=== PATIENT | male | born 1975 | race Caucasian/White ===

== ENCOUNTER 2023-08-28 10:36 | Emergency (ER) | payer OTHER, SELFPAY ==
[2023-08-28 10:50] VITALS: BP 139/98
--- NOTE | 2023-08-28 11:36 | ED.GENMED ---
History of Present Illness
<Corin Martinez PA-C - Last Filed: 08/28/23 17:26>
General
Chief Complaint: Abdominal Pain
Source: patient
Exam Limitations: none
Time Seen by Provider: 08/28/23 11:28
Nursing documentation reviewed up to this point in time: agreed with
History of Present Illness
History of Present Illness:
This is a 48-year-old male with a past medical history of hyperlipidemia, GERD presenting emergency department today with left lower quadrant pain and epigastric pain. Patient states that this started earlier this morning. Patient states that the
left lower quadrant pain came on suddenly out of nowhere. Patient states that he felt like he needed to have a bowel movement, however he went to use the bathroom and nothing was there and he did not have to go. Patient states that the pain
persisted 10 out of 10 in severity and so he subsequently called EMS. Patient became diaphoretic and pale. Patient states that when EMS arrived, the pain started to subside now he rates it at 3 out of 10. Patient states that while in the emergency
department, he also started to develop epigastric pain which she is feels a lot different than his GERD symptoms. Patient denies chest pain or shortness of breath. Patient is fevers or chills. Patient denies constipation or diarrhea. Patient denies
history of abdominal surgeries in the past.
Past History
<Corin Martinez PA-C - Last Filed: 08/28/23 17:26>
Past History
ED Past Medical History: None
Social History
Tobacco: Non-smoker
Review of Systems
<Corin Martinez PA-C - Last Filed: 08/28/23 17:26>
Review of Systems
All Other Systems: ROS reviewed and negative except as documented in HPI and ROS
Phy Exam
<Corin Martinez PA-C - Last Filed: 08/28/23 17:26>
Physical Exam
Physical Exam:
General: Patient is well appearing and in no acute distress; non-toxic
Skin: Warm and dry, no rashes or lesions
Head: Normocephalic, atraumatic
Eyes: Sclera non-icteric. EOMs intact. PERRLA.
Cardiac: Regular rate and rhythm, no murmurs
Peripheral Vascular: No lower extremity swelling or edema
Pulm: Normal respiratory effort, no wheezes, rales, rhonchi
Abdomen: Mild left lower quadrant abdominal tenderness palpation with some mild guarding, no rebound tenderness, no pulsatile abdominal mass, no palpable masses, normoactive bowel sounds
Neuro: CN II-XII intact, no focal neurologic deficits.
Psychiatric: Appropriate mood and affect.
Course
<Corin Martinez PA-C - Last Filed: 08/28/23 17:26>
Orders/Labs/Results
Orders:
Orders
08/28/23
Electrocardiogram (*1) Stat
Reason for Study: Chest Pain
Comment: DONE NO ORDER ENTERED
08/28/23 11:53
Complete Blood Count/With Diff Urgent
Comprehensive Metabolic Panel Urgent
Lipase Urgent
Troponin I Urgent
08/28/23 12:18
CT Abd/pelvis W Iv Cont Urgent
Reason For Exam: llq pain
08/28/23 12:20
0.9% Sodium Chloride 1000 ml [Nss] 1,000 ml IV BOLUS
Abnormal Lab Results
08/28/23
11:53
WBC 13.1 H 10^3/uL
(4.8-10.8)
Abs Immat Gran (auto) 0.1 H 10^3/uL
(0-0.05)
Absolute Neuts (auto) 11.5 H 10^3/uL
(1.4-6.5)
Absolute Lymphs (auto) 0.8 L 10^3/uL
(1.2-3.4)
Absolute Monos (auto) 0.7 H 10^3/uL
(0.1-0.6)
Neutrophils % 87.5 H %
(42.2-75.2)
Lymphocytes % 6.3 L %
(20.5-51.1)
BUN 25 H mg/dl
(9-20)
Creatinine 1.5 H mg/dL
(0.7-1.3)
Glucose 113 H mg/dl
(70-99)
ALT 72 H U/L
(0-50)
Total Protein 8.3 H g/dl
(6.3-8.2)
Albumin 5.5 H g/dl
(3.5-5.0)
08/28/23 11:53
08/28/23 11:53
Vital Signs
Initial and Last Documented VS:
Initial Vital Signs
Temp Pulse Resp BP Pulse Ox
98.3 F 77 20 139/98 97
08/28/23 10:50 08/28/23 10:50 08/28/23 10:50 08/28/23 10:50 08/28/23 10:50
Last Documented Vital Signs
Temp Pulse Resp BP Pulse Ox
98.3 F 83 20 146/90 97
08/28/23 10:50 08/28/23 15:54 08/28/23 10:50 08/28/23 15:54 08/28/23 10:50
<uLis M Darnell MD - Last Filed: 08/28/23 21:57>
Orders/Labs/Results
Orders:
Orders
08/28/23
Electrocardiogram (*1) Stat
Reason for Study: Chest Pain
Comment: DONE NO ORDER ENTERED
08/28/23 11:53
Complete Blood Count/With Diff Urgent
Comprehensive Metabolic Panel Urgent
Lipase Urgent
Troponin I Urgent
08/28/23 12:18
CT Abd/pelvis W Iv Cont Urgent
Reason For Exam: llq pain
08/28/23 12:20
0.9% Sodium Chloride 1000 ml [Nss] 1,000 ml IV BOLUS
Abnormal Lab Results
08/28/23
11:53
WBC 13.1 H 10^3/uL
(4.8-10.8)
Abs Immat Gran (auto) 0.1 H 10^3/uL
(0-0.05)
Absolute Neuts (auto) 11.5 H 10^3/uL
(1.4-6.5)
Absolute Lymphs (auto) 0.8 L 10^3/uL
(1.2-3.4)
Absolute Monos (auto) 0.7 H 10^3/uL
(0.1-0.6)
Neutrophils % 87.5 H %
(42.2-75.2)
Lymphocytes % 6.3 L %
(20.5-51.1)
BUN 25 H mg/dl
(9-20)
Creatinine 1.5 H mg/dL
(0.7-1.3)
Glucose 113 H mg/dl
(70-99)
ALT 72 H U/L
(0-50)
Total Protein 8.3 H g/dl
(6.3-8.2)
Albumin 5.5 H g/dl
(3.5-5.0)
08/28/23 11:53
08/28/23 11:53
Vital Signs
Initial and Last Documented VS:
Initial Vital Signs
Temp Pulse Resp BP Pulse Ox
98.3 F 77 20 139/98 97
08/28/23 10:50 08/28/23 10:50 08/28/23 10:50 08/28/23 10:50 08/28/23 10:50
Last Documented Vital Signs
Temp Pulse Resp BP Pulse Ox
98.3 F 83 20 146/90 97
08/28/23 10:50 08/28/23 15:54 08/28/23 10:50 08/28/23 15:54 08/28/23 10:50
<Corin Martinez PA-C - Last Filed: 08/28/23 17:26>
MDM/Problems Addressed
Differential Diagnosis Includes:
ddx include diverticulitis, perforated viscus, colitis, hernia, constipation
MDM/Problems Addressed:
LLQ pain:
This is a 48-year-old male with a past medical history of hyperlipidemia, GERD, tobacco use presenting emergency department today with left lower quadrant pain. Patient never had a colonoscopy before, has no history of abdominal surgeries. Patient
states that he has been constipated on and off recently. Patient states that his pain started severe 10 out of 10 and then came down to 3 out of 10 with only some mild discomfort. His CMP demonstrates an elevated BUN to creatinine ratio, liter
fluids were given. His CBC shows a very mild leukocytosis. His CT of the abdomen pelvis demonstrates some mild enteritis, can treat this with supportive care, patient states that he does feel better and will continue to monitor symptoms and watch
at home. Did encourage patient to start using MiraLAX once daily for a week or 2 to help regulate his bowels, discussed spasm and how this may help improve his pain as well. Discussed colonoscopy screening. Patient will follow-up with his
primary. Patient stable for discharge.
Chronic conditions affecting care:
hyperlipidemia, GERD, tobacco use
Acute Exacerbation and/or Progression of Chronic Illness:
hyperlipidemia, GERD, tobacco use
<Corin Martinez PA-C - Last Filed: 08/28/23 17:26>
*Pulse Oximetry
Patient hypoxic: no
*Critical Care Note
Total Time (30-74mins, 75-104mins- exclusive of procedures): Not Applicable
Data Reviewed
Review of Other/Old Records Reveals: Records (Reviewed previous ER physician documentation from 08/19/2014) and Discharge Summary (No discharge summaries in [facility] to review)
Source: patient and records
Prescriptions/Medications Considered But Not Given:
Considered antibiotics however patient does not have a significant leukocytosis, no fever, pain has significantly improved
<Corin Martinez PA-C - Last Filed: 08/28/23 17:26>
Patient Management
Escalation/DeEscalation of care consider admission/obs:
Admit not indicated, discussed case with my attending Dr. Darnell.
ED Attending Note
<Corin Martinez PA-C - Last Filed: 08/28/23 17:26>
-
Portions of this chart may have been created with voice recognition software.� Occasional wrong word or��sound alike� substitutions may have occurred due to the inherent limitations of voice recognition software.
<Luis M Darnell MD - Last Filed: 08/28/23 21:57>
ED Attending Note
Patient seen and examined by attending physician: Yes
ED Attending Note:
Patient presents to ED secondary to sudden onset of left-sided abdominal pain with nausea sensation, while he was at home this morning. Since then, pain has significant improved spontaneously. Denies fever or chills. Abdominal pain described as
sharp, nonradiating, without any alleviating or exacerbating factors. Denies previous history of similar symptoms. Denies recent illness. Denies recent change in medications or diet. Denies urinary difficulties.
Physical Exam
General: no apparent distress, not acutely ill. afebrile.
Head: nc/at. eomi
Neck: supple. no meningeal signs.
Heart: s1/s2 regular rate and rhythm, no murmur. equal radial pulses.
Lungs: no acute respiratory distress. clear bilaterally
Abdomen: normal bowel sounds. mild LLQ tenderness to palpation.
Neuro: alert and oriented. no focal neurological deficits
Skin: no rash
Psychiatric: well kept. interactive and cooperative
Extremities: no edema. no calf tenderness.
CT report reviewed and discussed with the patient. Pt with likely nonspecific abdominal discomfort. Advised bowel rest, hydration, along with pcp f/u as outpatient.
Discharge Plan
Departure
Patient Disposition: Home (Routine Discharge)
Date of Disposition: 08/28/23
Time of Disposition: 15:47
Patient with high blood pressure during this ER visit?: Yes
Condition: Good
Discharge Problem:
Abdominal pain
Instructions: Constipation, Adult (DC), Abdominal Pain, BLOOD PRESSURE
Prescriptions:
No Action
hydrocodone-acetaminophen 1 TABLET tablet
1 tab PO Q4HPRN PRN (Reason: Pain) Qty: 10 0RF
Referrals:
Bill Lundberg MD [Family Provider] -
Activity Restrictions/Additional Instructions:
Your CT scan demonstrated mild inflammation of the bowel. Please stay well hydrated and continue to monitor your symptoms.
I recommend starting MiraLAX once daily to help regulate your bowels. You can follow package instructions take once daily and mix with juice, water etc.
Please follow up with your primary care provider.
Interventions
Interventions:
*Risk Screen - Suicide Last Done: 08/28/23 10:50
*General Assessment Last Done: 08/28/23 10:50
*Neglect/Abuse Screening Last Done: 08/28/23 10:50
*Nursing Disposition Last Done: 08/28/23 15:54
DI-Wuxbhj-Hxprtzqcuf Assessment Last Done: 08/28/23 14:41
Discharge Date and Time
Discharge Date/Time: 08/28/23 15:55
Print Language: NICARAGU[place]
[2023-08-28 12:17] LABS: % Basophils 0.5 % (0-2); % Eosinophils 0.1 % (0-6); % Immature Granulocytes 0.4 % (0-0.5); % Lymphocytes 6.3 % (20.5-51.1); % Monocytes 5.2 % (1.7-9.3); % Neutrophils 87.5 % (42.2-75.2); Absolute Basophils 0.1 10^3/uL (0-0.2); Absolute Immature Granulocytes 0.1 10^3/uL (0-0.05); Absolute Lymphocytes 0.8 10^3/uL (1.2-3.4); Absolute Monocytes 0.7 10^3/uL (0.1-0.6); Absolute Neutrophils 11.5 10^3/uL (1.4-6.5); Hematocrit 45.4 % (39.0-52.0); Mean Corp Hgb Conc. 35.2 g/dL (33.0-37.0); Mean Corpuscular Hgb 30.6 pg (27.0-31.0); Mean Corpuscular Volume 86.8 fL (80.0-94.0); Mean Platelet Volume 9.1 fL (7.4-10.4); Nucleated Red Blood Cells % 0 % (-); Platelet Count 304 10^3/uL (130-400); Red Blood Cell Count 5.23 10^6/uL (4.70-6.10); Red Cell Dist. Width 12.2 % (11.5-14.5); White Blood Cell Count 13.1 10^3/uL (4.8-10.8)
[2023-08-28 12:35] LABS: ALT (SGPT) 72 U/L (0-50); AST (SGOT) 44 U/L (17-59); Albumin 5.5 g/dl (3.5-5.0); Alkaline Phosphatase 80 U/L (38-126); Blood Urea Nitrogen 25 mg/dl (9-20); Calcium 10.1 mg/dl (8.4-10.2); Carbon Dioxide 23 mmol/L (22-30); Chloride 105 mmol/L (98-107); Glucose 113 mg/dl (70-99); Lipase 170 U/L (23-300); Potassium 4.7 mmol/L (3.5-5.1); Sodium 141 mmol/L (135-145); Total Bilirubin 0.8 mg/dl (0.2-1.3); Total Protein 8.3 g/dl (6.3-8.2); eGFR 57.07
[2023-08-28 12:51] LABS: Troponin I < 0.012 ng/ml
[2023-08-28] MEDS: NSS 1000 IV (12:54)
[2023-08-28 15:30] VITALS: BP 146/90
[2023-08-28 15:54] VITALS: BP 146/90
== END 2023-08-28 15:55 | disposition home or self-care (01) ==
LOC: EMR 10:36
PROVIDERS: Physician Assistant; EMERGENCY PHYSICIAN Emergency Medicine; FAMILY PHYSICIAN Family Medicine
DX: R10.32 Left lower quadrant pain (principal); R10.13 Epigastric pain; R11.0 Nausea; R61 Generalized hyperhidrosis; R03.0 Elevated blood-pressure reading, without diagnosis of hypertension; K52.9 Noninfective gastroenteritis and colitis, unspecified; E78.5 Hyperlipidemia, unspecified; K21.9 Gastro-esophageal reflux disease without esophagitis; F31.9 Bipolar disorder, unspecified; F17.200 Nicotine dependence, unspecified, uncomplicated
CPT/HCPCS: 99284; 96360; 74177; 80053; 83690; 84484; 85025; 93005; Q9967